=== PATIENT | male | born 1980 | race African-American/Black ===

== ENCOUNTER 2018-11-16 11:49 | Emergency (ER) | payer OTHER ==
--- NOTE | 2018-11-16 12:09 | ED Physician Documentation ---
History of Present Illness - Stated complaint Stated Complaint: GLF - HIT HEAD - Chief complaint Chief Complaint: Neuro - History obtained from History obtained from: Patient - History of Present Illness Timing: Prior to arrival - Additonal information Additional information: Patient is a previously healthy 37-year-old male with no significant past medical history presenting after syncopal episode that occurred earlier this morning. Patient denies history of seizures, syncopal episodes or other medical issues. Patient reports he felt lightheaded and slightly nauseous and then awoke on the ground. Patient believes he struck the right side of his head and does have pain to that area. Patient denies neck pain, back pain, chest pain or rib pain. Patient does report slight abdominal pain and did have one episode of vomiting following the episode. Patient denies any stool changes, but states that he was incontinent of urine at that time. No evidence or concerns for tongue biting or other injuries. Patient denies alcohol, tobacco, and other illicit substances. No witnesses to the event. No other improving or worsening factors noted. Review of Systems Constitutional: denies: Fever Eyes: denies: Loss of vision Cardiac: denies: Chest pain / pressure Respiratory: denies: Dyspnea, Cough GI: reports: Abdominal Pain, Nausea, Vomiting. denies: Diarrhea : reports: Incontinent Musculoskeletal: denies: Neck pain, Back pain, Extremity pain Neurologic: reports: Syncope, Headache, Head injury, LOC. denies: Focal weakness, Numbness PD PAST MEDICAL HISTORY - Past Medical History Past Medical History: No - Past Surgical History Past Surgical History: No - Present Medications Home Medications: Ambulatory Orders Medication Instructions Recorded Confirmed Benzonatate [Tessalon Perle] 100 mg PO BID PRN #30 capsule 06/14/13 Doxycycline Hyclate 100 mg PO DAILY 06/14/13 06/14/13 Ondansetron Odt [Zofran] 4 mg TL Q6H PRN #10 tablet 06/14/13 - Allergies Allergies/Adverse Reactions: Allergies Allergy/AdvReac Type Severity Reaction Status Date / Time No Known Drug Allergies Allergy Verified 11/16/18 12:03 - Social History Does the pt smoke?: No Smoking Status: Never smoker Does the pt drink ETOH?: Yes Does the pt have substance abuse?: No - Immunizations Immunizations are current?: Yes PD ED PE NORMAL - Vitals Vital signs reviewed: Yes - General General: Alert and oriented X 3, No acute distress, Well developed/nourished - HEENT HEENT: PERRL (Gross visual acuity intact. No nystagmus.), EOMI, Moist mucous membranes, Pharynx benign. No: Atraumatic (Small palpable contusion to right forehead otherwise unremarkable.) - Neck Neck: No bony TTP - Cardiac Cardiac: RRR, No murmur - Respiratory Respiratory: No respiratory distress, Clear bilaterally - Abdomen Abdomen: Soft, Non tender, Non distended - Back Back: No spinal TTP - Derm Derm: Normal color, Warm and dry, No rash - Extremities Extremities: No deformity, No tenderness to palpate - Neuro Neuro: Alert and oriented X 3, No motor deficit, No sensory deficit - Psych Psych: Normal mood, Normal affect Results - Vitals Vitals: Vital Signs - 24 hr 11/16/18 11/16/18 11:55 15:33 Temperature 36.2 C L Heart Rate 73 62 Respiratory 16 16 Rate Blood Pressure 124/76 123/79 O2 Saturation 99 98 Oxygen O2 Source Room air - EKG (time done) 1257 Rate: Rate (enter#) (63) QRS: LVH - Labs Labs: Laboratory Tests 11/16/18 11/16/18 11/16/18 12:01 12:20 12:20 WBC 3.9 L RBC 4.61 L Hgb 13.5 L Hct 40.3 L MCV 87.4 MCH 29.3 MCHC 33.5 RDW 13.0 Plt Count 291 MPV 8.8 Neut # (Auto) 1.8 Lymph # (Auto) 1.6 Gilliam # (Auto) 0.3 Eos # (Auto) 0.1 Baso # (Auto) 0.1 Absolute Nucleated RBC 0.00 Nucleated RBC % 0.0 Sodium 139 Potassium 4.4 Chloride 103 Carbon Dioxide 24 Anion Gap 12.0 BUN 15 Creatinine 0.9 Estimated GFR (MDRD) 115 Glucose 115 H POC Whole Bld Glucose 111 H Calcium 9.3 Total Bilirubin 0.9 AST 16 ALT 17 Alkaline Phosphatase 43 Troponin I High Sens Total Protein 7.4 Albumin 4.2 Globulin 3.2 Albumin/Globulin Ratio 1.3 Lipase 35 TSH Urine Color Urine Clarity Urine pH Ur Specific [place] Urine Protein Urine Glucose (UA) Urine Ketones Urine Occult Blood Urine Nitrite Urine Bilirubin Urine Urobilinogen Ur Leukocyte Esterase Ur Microscopic Review Urine Culture Comments 08/09/19 08/09/19 08/09/19 12:20 12:20 15:15 WBC RBC Hgb Hct MCV MCH MCHC RDW Plt Count MPV Neut # (Auto) Lymph # (Auto) Gilliam # (Auto) Eos # (Auto) Baso # (Auto) Absolute Nucleated RBC Nucleated RBC % Sodium Potassium Chloride Carbon Dioxide Anion Gap BUN Creatinine Estimated GFR (MDRD) Glucose POC Whole Bld Glucose Calcium Total Bilirubin AST ALT Alkaline Phosphatase Troponin I High Sens 2.4 Total Protein Albumin Globulin Albumin/Globulin Ratio Lipase TSH 0.91 Urine Color YELLOW Urine Clarity CLEAR Urine pH 5.5 Ur Specific [place] >=1.030 H Urine Protein NEGATIVE Urine Glucose (UA) NEGATIVE Urine Ketones 40 H Urine Occult Blood TRACE-LYSE Urine Nitrite NEGATIVE Urine Bilirubin NEGATIVE Urine Urobilinogen 0.2 (NORMAL) Ur Leukocyte Esterase NEGATIVE Ur Microscopic Review NOT INDICATED Urine Culture Comments NOT INDICATED PD MEDICAL DECISION MAKING - ED course Complexity details: reviewed results, re-evaluated patient, considered differential, d/w patient ED course: Patient presenting after unwitnessed likely syncopal episode. Patient did not strike his head and have loss of consciousness. Patient does have small contusion to the right forehead. Given concern for possible central pathology including bleed, thrombus, aneurysm, stroke or other intracranial pathology we will plan to obtain CT head to further evaluate for such causes, as well as investigate any potential damage from striking of head and fall. Patient denies symptoms that would raise high suspicion for other types of infection, PE, ACS, ME, unstable angina, dissection, aneurysm. EKG and cardiac enzymes obtained which did not reveal significant arrhythmia or ischemia. Screening lab work did not find evidence of significant leukocytosis, electrolyte abnormality, acute kidney injury or other pathology. Urinalysis relatively benign. Patient had no further symptoms while in the ED. The patient is safe to discharge home at this time and discussed supportive cares, return precautions, primary care follow-up. Departure - Departure Disposition: 01 Home, Self Care Clinical Impression: Syncope Qualifiers: Syncope type: vasovagal syncope Qualified Code(s): R55 - Syncope and collapse Condition: Good Instructions: ED Syncope Vasovagal Follow-Up: your,doctor [Other] - Within 3 Days Comments: Recommend regular hydration, healthy diet, rest, and follow-up with primary care physician in next 2 to 3 days. Return to ED sooner if experience recurrence of episode, worsening symptoms or have other concerns.
[2018-11-16] MEDS ORDERED: SODIUM CHLORIDE 0.9% 1,000 ML IV ONE (12:19)
[2018-11-16 12:37] LABS: BASOPHILS # (AUTO) 0.1 10^3/uL (0.0-0.1); BASOPHILS % (AUTO) 1.3 %; EOSINOPHILS # (AUTO) 0.1 10^3/uL (0.0-0.7); EOSINOPHILS % (AUTO) 1.3 %; HGB - HEMOGLOBIN 13.5 g/dL (14.0-18.0); LYMPHOCYTES # (AUTO) 1.6 10^3/uL (1.5-3.5); LYMPHOCYTES % (AUTO) 42.6 %; MEAN CORPUSCULAR HEMOGLOBIN 29.3 pg (27.0-31.0); MEAN CORPUSCULAR HGB CONC 33.5 g/dL (32.0-36.0); MEAN CORPUSCULAR VOLUME 87.4 fL (80.0-94.0); MEAN PLATELET VOLUME 8.8 fL (7.4-11.4); MONOCYTES # (AUTO) 0.3 10^3/uL (0.0-1.0); MONOCYTES % (AUTO) 7.3 %; NEUTROPHILS # (AUTO) 1.8 10^3/uL (1.5-6.6); NEUTROPHILS % (AUTO) 47.5 %; PLT - PLATELET COUNT 291 10^3/uL (130-450); RED BLOOD COUNT 4.61 10^6/uL (4.70-6.10); WHITE BLOOD COUNT 3.9 x10^3/uL (4.8-10.8)
--- NOTE | 2018-11-16 12:45 | CT Report ---
Reason: fall, hit head, loc Procedure Date: 11/16/2018 Accession Number: [id number] / [id number] Procedure: CT - HEAD WO CPT Code: FULL RESULT: EXAM: HEAD WO EXAM DATE: 11/16/2018 12:31 PM CLINICAL HISTORY: Fall, hit head, loss of consciousness. COMPARISON: None. TECHNIQUE: Multiaxial CT images were obtained from the foramen magnum to the vertex. Reformats: Sagittal and coronal. IV contrast: None. In accordance with CT protocol optimization, one or more of the following dose reduction techniques were utilized for this exam: automated exposure control, adjustment of mA and/or KV based on patient size, or use of iterative reconstructive technique. FINDINGS: Parenchyma: No acute intraparenchymal hemorrhage. No evidence of mass, midline shift. Nunez-white differentiation is distinct. Extraaxial Spaces: Basal cisterns are preserved. No subdural or epidural collections identified. Ventricles: Normal in size and position. Sinuses and Orbits: Imaged paranasal sinuses, orbits, and mastoids show no significant abnormality. Bones: No evidence of fracture or calvarial defect. Other: None. IMPRESSION: No acute intracranial abnormality. RADIA
[2018-11-16 12:50] LABS: ALBUMIN 4.2 g/dL (3.2-5.5); ALBUMIN/GLOBULIN RATIO 1.3 (1.0-2.2); BILIRUBIN,TOTAL 0.9 mg/dL (0.2-1.0); CALCIUM 9.3 mg/dL (8.5-10.3); CREATININE 0.9 mg/dL (0.6-1.2); TOTAL PROTEIN 7.4 g/dL (6.7-8.2)
[2018-11-16] MEDS ORDERED: IBUPROFEN 600 MG TABLET PO STA (13:05)
[2018-11-16 15:35] LABS: BILIRUBIN,URINE NEGATIVE (NEGATIVE); GLUCOSE, URINE (UA) NEGATIVE (NEGATIVE); KETONES,URINE (UA) 40 mg/dL (NEGATIVE); LEUKOCYTE ESTERASE, URINE NEGATIVE (NEGATIVE); NITRITE,URINE NEGATIVE (NEGATIVE); OCCULT BLOOD,URINE TRACE-LYSE (NEGATIVE); PH,URINE 5.5 PH (5.0-7.5); PROTEIN,URINE NEGATIVE (NEGATIVE); UROBILINOGEN,URINE 0.2 (NORMAL) E.U./dL (NORMAL)
[2018-11-16 15:36] LABS: CLARITY,URINE CLEAR (CLEAR)
[2018-11-16 15:47] VITALS: BP 123/79
== END 2018-11-16 16:15 | disposition home or self-care (01) ==
LOC: ED 11:49
DX: R55 Syncope and collapse (principal); S00.83XA Contusion of other part of head, initial encounter; W18.39XA Other fall on same level, initial encounter; Y93.89 Activity, other specified; Y92.002 Bathroom of unspecified non-institutional (private) residence as the place of occurrence of the external cause
CPT/HCPCS: 36415; 70450; 81003; 83690; 84484; 93005; 96360; 96361; 99283; 99284; A9270; 80053; 81001; 84443; 85025; 87086

== ENCOUNTER 2022-11-14 09:11 | Outpatient (CLI) | payer BC ==
--- NOTE | 2022-11-14 18:03 | XRAY Report ---
PROCEDURE: Elbow 2 View RT INDICATIONS: PAIN IN RT ELBOW TECHNIQUE: 2 views of the elbow were acquired. COMPARISON: None. FINDINGS: Bones: Tiny avulsion off the medial epicondyle, but uncertain chronicity. It corresponds to the area of patient pain. Soft tissues: No effusion. No suspicious soft tissue calcifications or masses. IMPRESSION: A tiny avulsion off the medial epicondyle may potentially be an acute avulsion fragment. Reviewed by: Andrew Cates MD on 11/14/2022 6:02 PM PDT Approved by: Andrew Cates MD on 11/14/2022 6:02 PM PDT Station ID: [id number]
== END 2022-11-14 09:12 | disposition home or self-care (01) ==
LOC: DI 09:11
PROVIDERS: ATTEND Nurse Practitioner
DX: M25.521 Pain in right elbow (principal)

== ENCOUNTER 2022-12-15 08:00 | Outpatient (CLI) | payer BC ==
--- NOTE | 2022-12-15 17:24 | XRAY Report ---
PROCEDURE: Elbow 3 View RT INDICATIONS: RIGHT ELBOW PAIN TECHNIQUE: 3 views of the elbow were acquired. COMPARISON: None. FINDINGS: Bones: No fractures or dislocations. No suspicious bony lesions. Soft tissues: No effusion. No suspicious soft tissue calcifications or masses. IMPRESSION: No acute bony abnormality. Reviewed by: Calvin Dinh on 12/15/2022 5:23 PM PDT Approved by: Calvin Dinh on 12/15/2022 5:23 PM PDT Station ID: [id number]
== END 2022-12-15 23:59 | disposition home or self-care (01) ==
LOC: DI.WOS 08:00
PROVIDERS: ATTEND Physician Assistant Surgical
DX: M25.521 Pain in right elbow (principal)

== ENCOUNTER 2023-12-04 12:11 | Emergency (ER) | payer BC ==
[2023-12-04] MEDS ORDERED: ACETAMINOPHEN 500 MG TABLET PO ONE (12:54)
[2023-12-04] MEDS ORDERED: KETOROLAC 30 MG/ML VIAL ONE (12:54)
[2023-12-04 16:29] VITALS: BP 150/80; O2SAT 96
== END 2023-12-04 13:06 | disposition home or self-care (01) ==
LOC: ED 12:11
DX: M54.50 Low back pain, unspecified (principal); M62.830 Muscle spasm of back; F17.200 Nicotine dependence, unspecified, uncomplicated
CPT/HCPCS: 96372; 99283; A9270